=== PATIENT | female | born 1990 | race Caucasian/White ===

== ENCOUNTER 2020-06-06 14:25 | Emergency (ER) | payer BC ==
[~2020-06-06] VITALS: Ht 162.6 cm; Wt 72.6 kg
[~2020-06-06 14:25] MED LIST: ADDERALL; ADDERALL 10 MG10 MG PO; ADDERALL 20 MG20 M1; ANAPROX; IBUPROFEN 800800 M1 PO; LAMICTAL; LAMICTAL 25 MG25 M1; NAPROSYN500 MG PO; PROZAC40 MG PO; ULTRAM 50MG TAB50 MG PO
[2020-06-06] MEDS ORDERED: WELLBUTRIN XL150 MG PO (14:44)
[2020-06-06 14:57] LABS: HEMATOCRIT 39.6 % (37.0-47.0); HEMOGLOBIN 13.5 gm/dL (12.0-15.0); MCHC 33.9 g/dL (28.0-37.0); MCV 94.2 fL (80.0-100.0); MPV 7.9 fl. (7.2-11.1); NUCLEATED RBCS 0 /100WBC; PLATELET COUNT* 383 thou/uL (150-400); RBC 4.21 mil/uL (4.20-5.00); WBC 10.1 thou/uL (4.0-11.0)
[2020-06-06 15:04] LABS: CALCIUM 8.9 mg/dL (8.5-10.1); CREATININE 0.8 mg/dL (0.6-1.3); POTASSIUM 3.7 mmol/L (3.5-5.1)
[2020-06-06 15:08] LABS: ALBUMIN 4.4 g/dL (3.4-5.0); TOTAL BILIRUBIN 0.5 mg/dL (<0.1-1.0); TOTAL PROTEIN 7.5 g/dL (6.4-8.2)
[2020-06-06] MEDS ORDERED: TRINATE TABLET1 EACH PO (15:52)
[2020-06-06] MEDS ORDERED: REGLAN 10 MG TA10 MG PO (15:52)
[2020-06-06 15:54] LABS: ABSOLUTE EOSINOPHILS 0.1 thou/uL (0.0-0.7); ABSOLUTE LYMPHOCYTES 1.3 thou/uL (0.8-5.3); ABSOLUTE MONOCYTES 0.6 thou/uL (0.0-1.2); ABSOLUTE NEUTROPHILS 8.1 thou/uL (1.6-8.1); PLATELET ESTIMATE ADEQUATE
[2020-06-06] MEDS ORDERED: ZOFRAN ODT4 MG PO (16:43)
[2020-06-06 16:53] VITALS: BP 125/74
--- NOTE | 2020-06-07 12:07 | EKG ---
[place] [address] ELECTROCARDIOGRAM REPORT Name: ASHISH GONCALVES Room: [facility]#: [id number] Admission: 06/06/20 Attend Phys: Discharge: 06/06/20 Date of : 86 Date of Service: 06/06/20 1506 Report #: [id number] THIS REPORT FOR: //name// [facility] ED Test Date: 2020-06-06 Test Time: 15:06:45 Pat Name: ASHISH SACHA Department: Room: Gender: F [employer] Trainer: LAURA : 1990 Requested By: Tiffanie Oneill Order Number: [id number] MD: Neymar Minor Measurements Intervals [place] Rate: 73 P: 57 CT: 146 QRS: 72 QRSD: 100 T: 43 QT: 417 QTc: 460 Interpretive Statements Sinus arrhythmia Ventricular premature complex RSR' in V1 or V2, right VCD Baseline wander in lead(s) V4 Compared to ECG 07/14/2011 11:42:02 Ventricular premature complex(es) now present RSR' in V1 or V2 now present Sinus rate has decreased Electronically Signed On 06-07-2020 12:07:13 [employer]ER OPERATOR by Neymar Minor [email or web address] <ELECTRONICALLY SIGNED> By: Neymar Minor MD, [facility] 06/07/20 1207 1506 1506 Neymar Minor MD, [facility] /EPI
== END 2020-06-06 16:50 | disposition left against medical advice (07) ==
LOC: M.ERS 14:25
PROVIDERS: Nurse Practitioner Family
DX: Z32.01 Encounter for pregnancy test, result positive (principal); F12.90 Cannabis use, unspecified, uncomplicated; R11.15 Cyclical vomiting syndrome unrelated to migraine; Z20.828 Contact with and (suspected) exposure to other viral communicable diseases; Z3A.01 Less than 8 weeks gestation of pregnancy